=== PATIENT | male | born 1970 | race Two or more races ===

== ENCOUNTER 2016-12-28 07:41 | Day surgery (SDC) | payer OTHER ==
[2016-12-28] VITALS (11 sets, daily range): BP systolic 114–130; BP diastolic 51–94
[~2016-12-28] VITALS: Ht 172.7 cm; Wt 87.5 kg
--- NOTE | 2016-12-28 06:36 | Anethesia Preoperative Eval ---
Anesthesia Pre-op PMH/ROS General Date of Evaluation: Dec 28, 2016 Time of Evaluation: 06:35 Anesthesiologist: skip ASA Score: ASA 3 Mallampati Score Class I : Soft palate, uvula, fauces, pillars visible Class II: Soft palate, uvula, fauces visible Class III: Soft palate, base of uvula visible Class IV: Only hard plate visible Mallampati Classification: Class II Surgeon: ponce Diagnosis: history of gastric cancer Surgical Procedure: egd/colonoscopy Anesthesia History: none Social History: smoking - nonsmoker Allergies: Coded Allergies: No Known Allergies (Unverified , 12/27/16) Medications: see eMAR Past Medical History Gastrointestinal/Genitourinary: Reports: other - history of gastric cancer Neurologic/Psychiatric: Reports: depression/anxiety Anesthesia Pre-op Phys. Exam Physician Exam Last Vital Signs Date Time Temp Pulse Resp B/P (MAP) Pulse Ox O2 Delivery O2 Flow Rate FiO2 12/28/16 08:20 97.9 61 20 121/51 95 Room Air Constitutional: NAD Neurologic: CN 2-12 intact Cardiovascular: RRR Respiratory: CTA Gastrointestinal: S/NT/ND Airway Exam Mallampati Score: Class II MO: full Neck: supple TMD: 2fb ROM: full Teeth: intact Anesthesia Pre-op A/P Risk Assessment & Plan Assessment: asa3 Plan: mac Status Change Before Surgery: No Pre-Antibiotics Drug: JUAN Urena Dec 28, 2016 06:36
[2016-12-28] MEDS ORDERED: CYMBALTA30 MG ORAL (08:24)
[2016-12-28] MEDS ORDERED: Propofol 200mg/20ml IV ONE (09:00)
[2016-12-28] MEDS ORDERED: Lidocaine 1% MPF 10mg/ml 5ml ONE (09:00)
--- NOTE | 2016-12-28 09:07 | Pre-Procedure Note/Attestation ---
Pre-Procedure Note/Attestation Complete Prior to Procedure Planned Procedure: not applicable Procedure Narrative: EGD/colonoscopy Indications for Procedure Pre-Operative Diagnosis: colon polyps, GERD Attestation I attest that I discussed the nature of the procedure; its benefits; risks and complications; and alternatives (and the risks and benefits of such alternatives ), prior to the procedure, with the patient (or the patient's legal circulation sales representative). I attest that, if there was a reasonable possibility of needing a blood transfusion, the patient (or the patient's legal circulation sales representative) was given the [facility] standardized written summary, pursuant to the [place] Blood Safety Act ([place] Health and Safety Code # 1645, as amended). I attest that I re-evaluated the patient just prior to the surgery and that there has been no change in the patient's H&P, except as documented below: FABIO GUTIERREZ Dec 28, 2016 09:07
--- NOTE | 2016-12-28 09:08 | Short Stay Surgery H&P ---
History of Present Illness History of Present Illness Chief Complaint colon polyps, GERD HPI Kenzie Pate is a 46 year old male who was admitted on for Hx Of Gastric Cancer/ Abdominal Ult Patient History Allergies: Coded Allergies: No Known Allergies (Unverified , 12/27/16) PAST MEDICAL HISTORY: (1) Colon polyps (2) GERD (gastroesophageal reflux disease) Past Surgeries: Social History: Medication History Scheduled Duloxetine Hcl* (Cymbalta*), 30 MG ORAL DAILY, (Reported) Review of Systems Cardiovascular: Reports: no symptoms Respiratory: Reports: no symptoms Skeletal: Reports: no symptoms Gastrointestinal: Reports: no symptoms Genitourinary: Reports: no symptoms Neurologic: Reports: no symptoms Endocrine: Reports: no symptoms Physical Exam Vital Signs Last Vital Signs Date Time Temp Pulse Resp B/P (MAP) Pulse Ox O2 Delivery O2 Flow Rate FiO2 12/28/16 08:20 97.9 61 20 121/51 95 Room Air Skin: normal HENT: normal Heart: normal Lungs: normal Abdomen: normal Extremities: normal Plan Plan of Care esophagogastroduodenoscopy and colonoscopy Final Diagnosis: Attestation Are the patient's medical conditions optimized for surgery? Attestation Response: yes FABIO GUTIERREZ Dec 28, 2016 09:08
[2016-12-28] MEDS ORDERED: Midazolam 2mg/2ml Inj IVP PRN (09:30)
[2016-12-28] MEDS ORDERED: Atropine Inj 1mg/10ml Syr IV PRN (09:30)
[2016-12-28] MEDS ORDERED: fentaNYL 100 mcg/2 mL IV PRN (09:30)
[2016-12-28] MEDS ORDERED: DiphenhydrAMINE 50mg/ml Inj IVP PRN (09:30)
--- NOTE | 2016-12-28 09:41 | Endoscopy Procedure Note ---
Endoscopy Procedure Note Indication for Procedure: h/o colon polyp, GERD Procedures Performed: EGD, colonoscopy Operative Findings/Diagnosis: gastritis, colon polyp Specimen: yes Pt Tolerated Procedure Well: Yes Estimated Blood Loss: none Anesthesiologist: [place] Anesthesia: MAC Implant(s) used?: No 50 yrs or older w/o bx or poly: No 10yrs. F/U not recommended: Yes If not recommended, why?: Above average risk 10 yrs. F/U needed: Yes 18 years or older w/prev. colo: Yes <3yrs. since last colonoscopy: No FABIO GUTIERREZ Dec 28, 2016 09:41
--- NOTE | 2016-12-28 12:04 | Immediate Post-Op Evaluation ---
Immediate Post-Op Evalulation Immediate Post-Op Evalulation Procedure: egd/colonoscopy Date of Evaluation: Dec 28, 2016 Time of Evaluation: 09:50 IV Fluids: 0.9ns 250ml Blood Products: none Estimated Blood Loss: negligible Blood Pressure Systolic: 130 Blood Pressure Diastolic: 89 Pulse Rate: 50 Respiratory Rate: 18 O2 Sat by Pulse Oximetry: 100 Temperature (Fahrenheit): 98.2 Pain Score (1-10): 0 Nausea: No Vomiting: No Complications none Patient Status: awake, reacts, patent Hydration Status: adequate Drug: JUAN Urena Dec 28, 2016 12:04
--- NOTE | 2016-12-28 12:09 | 48 Hour Post Anesthesia Eval ---
Post Anesthesia Evaluation Procedure: egd/colonoscopy Date of Evaluation: Dec 28, 2016 Time of Evaluation: 09:52 Blood Pressure Systolic: 128 0: 89 Pulse Rate: 58 Respiratory Rate: 18 Temperature (Fahrenheit): 98.2 O2 Sat by Pulse Oximetry: 100 Airway: patent Nausea: No Vomiting: No Pain Intensity: 0 Hydration Status: adequate Cardiopulmonary Status: stable Mental Status/LOC: patient returned to baseline Post-Anesthesia Complications: none Follow-up care needed: N/A JUAN RODRIGUEZ Dec 28, 2016 12:09
--- NOTE | 2016-12-28 14:21 | Diagnostic Imaging Report ---
Indication:Abdominal pain Technique: Grayscale and duplex Doppler imaging of the abdomen performed. Comparison: None Findings: The liver is echogenic. The demonstrated part of the pancreas, gallbladder, aorta and IVC, both kidneys, spleen appear unremarkable. There is no biliary ductal dilatation identified. Doppler evaluation of the main portal vein shows patency. There is no ascites. No hydronephrosis seen. CBD is between 6 and 7 mm. Impression: Liver. Negative exam otherwise.
--- NOTE | 2016-12-28 15:45 | Procedure Note ---
DATE OF PROCEDURE: 12/28/2016 SURGEON: Dallas Plata M.D. PROCEDURE: Upper endoscopy with biopsy and colonoscopy with biopsy. ANESTHESIA: Per Dr. Milton. INSTRUMENT: Olympus adult flexible upper endoscope and colonoscope. INDICATION: Family history of colon cancer, personal history of colonic polyps, chronic gastroesophageal reflux disease, and family history of gastric cancer. REASON FOR PROCEDURE: The procedure, risks, benefits, and possible consequences, including hemorrhage, aspiration, perforation and infection, and alternative treatments, were explained to the patient/legal guardian by Dr. Dallas Plata and the patient/legal guardian understood and accepted these risks. DESCRIPTION OF PROCEDURE: After informed consent was obtained and the patient was adequately sedated, Olympus upper endoscope was advanced from the mouth into the second portion of duodenum and retroflexion was performed in the stomach. The patient had diffuse gastritis. Random biopsy from antrum and body was obtained to rule out H. pylori infection. The rest of the exam was grossly normal. The patient also had a small inlet patch. At this time, the upper endoscope was retrieved and the patient was turned over for colonoscopy. First, a rectal exam was performed, which was normal. Then, the scope was advanced from rectum into the cecum documented by appendiceal orifice, ileocecal valve, and right upper quadrant palpation. Quality of prep was very good. The patient had one polyp, measured about 3 to 4 mm in the transverse colon, removed with the cold biopsy forceps technique. The rest of the exam was grossly within normal limits. Retroflexion of rectum showed evidence of medium-sized internal hemorrhoids. SUMMARY OF FINDINGS: 1. Inlet patch, small. 2. Gastritis, status post biopsy. 3. One colonic polyp removed, see above for details. 4. Internal hemorrhoids. RECOMMENDATIONS: 1. Follow up biopsy results and treat accordingly. 2. Recommend repeat colonoscopy in five years. Dallas Plata M.D. DR: HAL JOB#: [id number] CC:
== END 2016-12-28 11:55 | disposition home or self-care (01) ==
LOC: GAS 07:41
DX: K21.9 Gastro-esophageal reflux disease without esophagitis (principal); D12.3 Benign neoplasm of transverse colon; K64.8 Other hemorrhoids; K22.6 Gastro-esophageal laceration-hemorrhage syndrome; Z80.42 Family history of malignant neoplasm of prostate; Z80.0 Family history of malignant neoplasm of digestive organs; F41.9 Anxiety disorder, unspecified; F32.9 Major depressive disorder, single episode, unspecified; K29.50 Unspecified chronic gastritis without bleeding
CPT/HCPCS: 43239; 45380; 76700; J2704; 94003; 94150